=== PATIENT | female | born 1940 | race Caucasian/White ===

== ENCOUNTER 2018-12-30 07:25 | Emergency (ER) | payer OTHER, BC ==
[~2018-12-30] VITALS: Ht 165.1 cm; Wt 70.8 kg
[2018-12-30 07:31] VITALS: BP 130/104; Ht 165.1 cm; Wt 70.8 kg
== END 2018-12-30 08:17 | disposition home or self-care (01) ==
LOC: ED 07:25
DX: N39.0 Urinary tract infection, site not specified (principal); F17.200 Nicotine dependence, unspecified, uncomplicated; I48.91 Unspecified atrial fibrillation; E78.00 Pure hypercholesterolemia, unspecified; Z90.49 Acquired absence of other specified parts of digestive tract; Z88.8 Allergy status to other drugs, medicaments and biological substances
CPT/HCPCS: 99406

== ENCOUNTER 2019-02-11 04:04 | Emergency (ER) | payer OTHER, BC ==
[~2019-02-11] VITALS: Ht 165.1 cm; Wt 70.8 kg
[2019-02-11 04:08] VITALS: Ht 165.1 cm; Wt 70.8 kg
[2019-02-11 07:06] LABS: BASOPHIL % 0.4 % (0-2); PLATELET COUNT 221 x10^3mcL (130-400)
[2019-02-11 07:12] LABS: RED CELL DISTRIBUTION WIDTH 15.2 % (11.5-14.5)
[2019-02-11 07:19] LABS: microscopic required? YES; urine erythrocyte TRACE (NEGATIVE)
[2019-02-11 07:32] LABS: CARBON DIOXIDE 26.8 mmol/L (21-32); CHLORIDE SERUM 108 mmol/L (98-107); CREATININE SERUM 0.8 mg/dL (0.6-1.0); GLUCOSE SERUM 118 mg/dL (74-106); POTASSIUM SERUM 4.6 mmol/L (3.5-5.1); SODIUM SERUM 144 mmol/L (136-145)
[2019-02-11 07:36] LABS: ALBUMIN 3.5 g/dL (3.4-5.0); ALKALINE PHOSPHATASE 84 U/L (46-116); ALT/SGPT 24 U/L (14-59); AST/SGOT 16 U/L (15-37); BILIRUBIN TOTAL 0.3 mg/dL (0.20-1.00); CHOLESTEROL 155 mg/dL (<200); LIPASE 171 IU/L (73-393); TOTAL PROTEIN, SERUM 7.3 g/dL (6.4-8.2)
[2019-02-11 07:37] LABS: T3 TOTAL 1.09 ng/mL
[2019-02-11 07:38] LABS: CHOLESTEROL/HDL RATIO 4.8; HDL CHOLESTEROL 32 mg/dL (40-60); TRIGLYCERIDES 249 mg/dL (<150)
[2019-02-11 07:41] LABS: FREE T4 0.91 ng/dL (0.76-1.46); FREE THYROXINE INDEX 2.4 ug/dL (1.4-4.5); T4(THYROXINE) 7.3 ug/dL (4.7-13.3)
[2019-02-11 10:00] VITALS: BP 134/53
== END 2019-02-11 10:00 | disposition home or self-care (01) ==
LOC: ED 04:04
PROVIDERS: Specialist
DX: N39.0 Urinary tract infection, site not specified (principal); R00.2 Palpitations; E78.00 Pure hypercholesterolemia, unspecified; I48.91 Unspecified atrial fibrillation; Z88.8 Allergy status to other drugs, medicaments and biological substances; Z90.49 Acquired absence of other specified parts of digestive tract
CPT/HCPCS: 36415; 82962; 83880; 84439; Q0092